=== PATIENT | male | born 1955 | race Caucasian/White ===

== ENCOUNTER 2016-10-28 00:55 | Emergency (ER) | payer MEDICAID, OTHER ==
[~2016-10-28] VITALS: Ht 170.2 cm; Wt 79.4 kg
[2016-10-28 01:06] VITALS: BP 120/95
--- NOTE | 2016-10-28 01:19 | NUR ---
TO ER BED 7
--- NOTE | 2016-10-28 01:19 | NUR ---
PATIENT PRESENTS TO ED WITH ABSCESS TO THE LEFT BACK OF ARMPIT X 2 WEEKS 8/10 PAIN. PT DENIES N/V/D; SKIN IS PINK/WARM/DRY; AAOX4 WITH EVEN AND STEADY GAIT; LUNGS CLEAR BL; HR EVEN AND REGULAR; PT DENIES ANY FEVER, CP, SOB, OR COUGH AT THIS TIME; PATIENT STATES PAIN OF 8/10 AT THIS TIME; VSS; PATIENT POSITIONED FOR COMFORT; HOB ELEVATED; BEDRAILS UP X2; BED DOWN. ER MD MADE AWARE OF PT STATUS.
[2016-10-28] MEDS ORDERED: LIDOCAINE 1% 500 MG/50 ML VIAL INJ ONE (01:20)
--- NOTE | 2016-10-28 01:50 | NUR ---
I&D Procedure done by Dr TEE PONCE amt of bleeding noted. Wound packed with . DSD applied. Pt TOLERATED THE procedure WELL. Wound care discussed w/ patient.
[2016-10-28 02:20] VITALS: BP 118/78
--- NOTE | 2016-10-28 02:20 | NUR ---
Patient discharged with v/s stable. Written and verbal after care instructions given and explained. Patient alert, oriented and verbalized understanding of instructions. Ambulatory with steady gait. All questions addressed prior to discharge. ID band removed. Patient advised to follow up with PMD. Rx of MOTRIN, NORCO, BACTRIM, KEFLEX given. Patient educated on indication of medication including possible reaction and side effects. Opportunity to ask questions provided and answered.
== END 2016-10-28 02:20 | disposition home or self-care (01) ==
LOC: MED 00:55
DX: L02.414 Cutaneous abscess of left upper limb (principal); Z98.890 Other specified postprocedural states
CPT/HCPCS: 10060; 99283; J2001

== ENCOUNTER 2016-12-21 01:08 | Emergency (ER) | payer MEDICAID, OTHER ==
[~2016-12-21] VITALS: Ht 170.2 cm; Wt 86.2 kg
[2016-12-21 01:11] VITALS: BP 147/90
--- NOTE | 2016-12-21 02:45 | NUR ---
PATIENT TO ER BED 6.
--- NOTE | 2016-12-21 02:57 | NUR ---
PT IS 61/M BIB SELF TO ED WITH C/O REDNESS, SWELLING AND PAIN ON HIS LEFT FOREARM AND 5TH TOE X 10 DAYS. DENIES N/V/D; SKIN IS PINK/WARM/DRY; AAOX4 WITH EVEN AND STEADY GAIT; LUNGS CLEAR BL; HR EVEN AND REGULAR; PT DENIES ANY FEVER, CP, SOB, OR COUGH AT THIS TIME; PATIENT STATES PAIN OF 8/10 AT THIS TIME; VSS; PATIENT POSITIONED FOR COMFORT; HOB ELEVATED; BEDRAILS UP X2; BED DOWN. ER MD MADE AWARE OF PT STATUS.
--- NOTE | 2016-12-21 03:00 | NUR ---
PATIENT BEING EVALUATED BY DR. VANN.
[2016-12-21] MEDS ORDERED: ceFAZolin 1,000 MG VIAL IM ONE (03:15)
[2016-12-21] MEDS ORDERED: WATER STERILE 10 ML MC ONE (03:39)
[2016-12-21 03:55] VITALS: BP 139/81
== END 2016-12-21 03:55 | disposition home or self-care (01) ==
LOC: MED 01:21
DX: L02.414 Cutaneous abscess of left upper limb (principal)
CPT/HCPCS: 10060; 96372; 99283; J0690

== ENCOUNTER 2017-02-11 21:34 | Inpatient (IN) | payer MEDICAID, OTHER ==
[~2017-02-11] VITALS: Ht 170.2 cm; Wt 72.6 kg
[2017-02-11 21:35] VITALS: BP 155/100
--- NOTE | 2017-02-11 21:52 | NUR ---
TO ER BED 5
--- NOTE | 2017-02-11 22:07 | NUR ---
61 YO M W/C/O CELLULITIS TO R UPPER ABD AND BILATERAL ARMS, FEVER AND CHILLS X 2 WKS. PT STATES THAT DOESNT KNOW WHAT CAUSED THE CELLULITIS. ER MD AT BEDSIDE, MIKAL.
[2017-02-11] MEDS ORDERED: NACL 0.9% 1,000 ML IV ONE (22:16)
[2017-02-11] MEDS ORDERED: KETOROLAC 30 MG/ML VIAL IVP ONE (22:20)
[2017-02-11] MEDS ORDERED: CLINDAMYCIN 600 MG in DEXTROSE 5% 50 ML IV ONE (22:20)
[2017-02-11] MEDS ORDERED: PIPERACILLIN/TAZOBACTAM 3.375 GM in DEXTROSE 5% 50 ML IV ONE (22:20)
--- NOTE | 2017-02-11 22:25 | NUR ---
CHAGE UMANG LEVEL TO 3 PT. NEEDS 3 MORE RESOURCES
[2017-02-11] MEDS ORDERED: PIPERACILLIN/TAZOBACTAM 3.375 GM VIAL IV ONE ×2 (22:38→23:44)
[2017-02-11] MEDS ORDERED: CLINDAMYCIN 600 MG/4 ML VIAL ONE (22:38)
[2017-02-11 22:45] LABS: BASOPHILS # (AUTO) 0.1 K/uL (0.00-0.22); EOSINOPHILS # (AUTO) 0.1 K/uL (0-0.4); EOSINOPHILS % (AUTO) 1.2 % (0.0-4.0); HEMATOCRIT 34.1 % (36-52); HEMOGLOBIN 10.9 g/dL (12.0-18.0); LYMPHOCYTES # (AUTO) 1.1 K/uL (2.0-11.5); LYMPHOCYTES % (AUTO) 13.5 % (20.5-51.1); MEAN CORPUSCULAR HEMOGLOBIN 25 pg (27-31); MEAN CORPUSCULAR HGB CONC 32 g/dL (33-37); MEAN CORPUSCULAR VOLUME 79 fL (80-94); MONOCYTES # (AUTO) 0.6 K/uL (0.8-1.0); MONOCYTES % (AUTO) 6.9 % (1.7-9.3); NEUTROPHILS # (AUTO) 6.5 K/uL (1.8-7.7); NEUTROPHILS % (AUTO) 77.4 % (42.2-75.2); PLATELET COUNT (AUTO) 345 K/uL (140-450); RED BLOOD CELL COUNT(AUTO) 4.33 MIL/uL (4.20-6.10); WHITE BLOOD COUNT (AUTO) 8.4 K/uL (4.8-10.8)
--- NOTE | 2017-02-11 22:45 | NUR ---
PT RESTING IN BED, VSS. NO SS OF DISTRESS NOTED, RECEIVING IV FLUIDS AND ANTIBIOTICS.
[2017-02-11] MEDS ORDERED: NACL 0.9% 1,000 ML IV SCH (22:50)
[2017-02-11] MEDS ORDERED: DOCUSATE SODIUM 100 MG GELCAP PO PRN (22:50)
[2017-02-11] MEDS ORDERED: ONDANSETRON 4 MG/2 ML VIAL IM/IVP PRN (22:50)
[2017-02-11] MEDS ORDERED: HYDROcodone/APAP 7.5/325 MG 1 TAB PO PRN (22:50)
[2017-02-11] MEDS ORDERED: ACETAMINOPHEN 325 MG TAB PO PRN (22:50)
[2017-02-11] MEDS ORDERED: MORPHINE SULFATE 2 MG/ML SYR IVP PRN (22:50)
[2017-02-11 22:58] LABS: RED CELL DISTRIBUTION WIDTH 20.5 % (11.6-13.7)
--- NOTE | 2017-02-11 23:00 | NUR ---
Patient will be admitted to care of dr lopez. Admited to telemetry. Will go to room 118. Belongings list completed. Report to he is JENIFER smith.
[2017-02-11 23:03] LABS: INR 1.1 (0.8-1.2); PROTHROMBIN TIME 11.1 secs (10.8-13.4)
[2017-02-11 23:07] LABS: LACTIC ACID 1.6 mmol/L (0.4-2.0)
--- NOTE | 2017-02-11 23:10 | NUR ---
PT ARRIVED TO THE UNIT VIA GURNEY. INITIAL ASSESSMENT COMPLETED. PT AAOX4. PT STATES THAT HE IS VERY TIRED AND WANTS TO GO TO SLEEP. PT HAS ABDOMINAL ABSCESS ON RIGHT SIDE OF ABDOMEN. PT REFUSES TO TAKE HIS SHORTS OFF SO THAT WE CAN ASSESS HIS SKIN. HE ALSO WANTED TO PUT THE HOSPITAL SOCKS BY HIMSELF. HE DID NOT WANT ME TO HELP HIM. I TOLD HIM I NEEDED TO ASSESS THE REST OF HIS SKIN, BUT HE REFUSES. HE STATED THAT HIS SKIN IS INTACT. PT HAS IV ON RIGHT FOREARM G 20 INFUSING FLUIDS WELL. VS STABLE, WILL CONTINUE TO MONITOR PT.
--- NOTE | 2017-02-11 23:12 | NUR ---
PT TAKEN TO TELEMETRY FLOOR VIA GURADELA. VSS UPON TRASFER. ACCOMPANIED BY RN, AND EMT.
--- NOTE | 2017-02-11 23:12 | NUR ---
William mari in ED - 02/12/17 at 0026 by KOMAL FLOOR NURSE NOTIFIED TO START ZOSIN IV ANTIBIOTICS DT UNABLE TO START IT ON ER FLOOR. MED SEND WITH PT.
[2017-02-11 23:16] LABS: ALBUMIN 3.5 g/dL (3.4-5.0); ANION GAP 10.8 (8-16); CALCIUM 8.2 mg/dL (8.5-10.1); CARBON DIOXIDE 28.9 mmol/L (21-32); CREATININE 0.9 mg/dL (0.7-1.3); POTASSIUM 3.7 mmol/L (3.5-5.1); TOTAL BILIRUBIN 0.6 mg/dL (0.0-1.0); TOTAL PROTEIN, SERUM 7.8 g/dL (6.4-8.2)
--- NOTE | 2017-02-11 23:40 | NUR ---
THERE IS AN ORDER FOR SCDS; HOWEVER, PT REFUSES TO USE THEM. I EXPLAINED TO PT THE IMPORTANCE OF WEARING THEM BUT HE REFUSES.
[2017-02-11 23:48] LABS: CHOL/HDL RATIO 1.9 (1-4.5); FREE T4 (FREE THYROXINE) 1.06 ng/dL (0.76-1.46); THYROID STIMULATING HORMONE 2.5 uIU/mL (0.34-3.74)
[2017-02-11 23:54] LABS: APPEARANCE,URINE SL CLOUDY (CLEAR); BILIRUBIN,URINE NEGATIVE (NEGATIVE); BLOOD, URINE NEGATIVE (NEGATIVE); COLOR,URINE YELLOW (YELLOW); LEUKOCYTE ESTERASE ,URINE NEGATIVE (NEGATIVE); NITRITE, URINE NEGATIVE (NEGATIVE); PH,URINE 5.5 (5.0-9.0); PROTEIN,URINE TRACE (NEGATIVE); UGLUCOSE NEGATIVE (NEGATIVE); UROBILINOGEN,URINE 0.2 EU/dL (0.2 - 1)
[2017-02-11 23:55] LABS: AMPHETAMINE, URINE POS. ng/ml (NEG <=1000); BARBITURATE, URINE NEG. ng/ml (NEG <=200); BENZODIAZEPINE, URINE NEG. ng/mL (NEG <=200); CANNABINOID, URINE NEG. ng/mL (NEG <=50); COCAINE, URINE NEG. ng/mL (NEG <=300); OPIATE, URINE POS. ng/mL (NEG <=2000); PHENCYCLIDINE SCREEN,URINE NEG. ng/mL (NEG <=25)
--- NOTE | 2017-02-11 23:55 | NUR ---
ZOSYN NOT GIVEN; PT RECEIVED IT WHILE HE WAS IN ER.
[2017-02-12] VITALS: BP 137/70
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
[2017-02-12 00:19] LABS: BACTERIA,URINE None Seen /HPF (None Seen); HYALINE CASTS, URINE 0-3 /LPF (None Seen); MUCUS,URINE 4+ /LPF (None Seen); RBC,URINE 0-5 (RARE) /HPF (0-5); SQUAMOUS EPITHELIAL CELL,UR 0-3 (FEW) /LPF (0-3 (FEW)); WBC,URINE 0-5 (RARE) /HPF (0-5)
--- NOTE | 2017-02-12 01:15 | NUR ---
PT SLEEPING AT THIS TIME, WILL CONTINUE TO MONITOR PT.
[2017-02-12] MEDS ORDERED: MECLIZINE 25 MG TAB PO PRN ×2 (03:05)
--- NOTE | 2017-02-12 03:25 | NUR ---
PT TAKEN TO GET A CT OF THE HEAD.
--- NOTE | 2017-02-12 03:52 | NUR ---
PT BACK FROM CT.
--- NOTE | 2017-02-12 04:00 | NUR ---
PT REQUESTING SOMETHING TO EAT, EXPLAINED TO PT THAT HE COULD NOT HAVE ANYTHING TO EAT OR DRINK BECAUSE HE MAY HAVE SURGERY TODAY. PT GOT ANGRY. WILL CALL
--- NOTE | 2017-02-12 04:10 | NUR ---
DR. NUNEZ AT BEDSIDE EXPLAINING TO PT WHY HE CAN NOT EAT OR DRINK AT THIS TIME. EXPLAINED TO PT THAT IT IS POSSIBLE HE MAY HAVE SURGERY TODAY. PT GOT ANGRY AND DISRESPECTFUL TO STAFF; HE STATED HE WANTED TO GO HOME. DR. NUNEZ ORDERED TO PRINT OUT AMA FORM; BUT PT REFUSED TO SIGN. SECURITY AND DR. NUNEZ AT BEDSIDE. HEART MONITOR REMOVED, IV REMOVED WITH TIP INTACT, ID BANDS REMOVED. ALL BELONGINGS WITH PT. SECURITY WALKED OUTSIDE ACCOMPANIED BY SECURITY SANTANA. SECURITY SANTANA STATED THAT PT TOOK THE BICYCLE PT CAME WITH.
[2017-02-12] MEDS ORDERED: CLINDAMYCIN 600 MG in DEXTROSE 5% 50 ML IV SCH (05:00)
[2017-02-12] MEDS ORDERED: PIPER/TAZO 3.375GM/D5W PREMIX 50 ML IV SCH (06:00)
[2017-02-12] MEDS ORDERED: CALCIUM ACETATE 667 MG TAB PO SCH (08:00)
--- NOTE | 2017-02-12 08:36 | NUR ---
FAXED INITIAL REVIEW TO [facility] [phone] PHONE [place] [phone] CALLED NABOR AT [facility]. SHE SAID REVIEWS GO TO [facility].
[2017-02-12] MEDS ORDERED: THIAMINE 100 MG TAB PO SCH (09:00)
[2017-02-12] MEDS ORDERED: FOLIC ACID 1 MG TAB PO SCH (09:00)
[2017-02-12] MEDS ORDERED: FERRIC GLUCONATE 125 MG in NACL 0.9% 100 ML IV SCH (09:00)
[2017-02-12] MEDS ORDERED: LACTOBACILLUS RHAMNOSUS GG 1 EACH CAP PO SCH (09:00)
[2017-02-13 08:20] LABS: HEMOGLOBIN A1C 5.6 % (4.8-5.6); T4 (THYROXINE) 7.5 ug/dL (4.5-12.0)
== END 2017-02-12 04:20 | disposition left against medical advice (07) | DRG 812 ==
LOC: MED 21:34 → MTU 22:59
PROVIDERS: ADMIT Student in an Organized Health Care Education/Training Program; ATTEND Student in an Organized Health Care Education/Training Program
DX: T43.621A Poisoning by amphetamines, accidental (unintentional), initial encounter (principal); N17.0 Acute kidney failure with tubular necrosis; G92 Toxic encephalopathy; E83.39 Other disorders of phosphorus metabolism; F11.129 Opioid abuse with intoxication, unspecified; D50.9 Iron deficiency anemia, unspecified; L02.211 Cutaneous abscess of abdominal wall; T50.901A Poisoning by unspecified drugs, medicaments and biological substances, accidental (unintentional), initial encounter; R10.31 Right lower quadrant pain; L03.113 Cellulitis of right upper limb; F15.129 Other stimulant abuse with intoxication, unspecified; Z60.2 Problems related to living alone; L03.114 Cellulitis of left upper limb; Z53.21 Procedure and treatment not carried out due to patient leaving prior to being seen by health care provider; Z59.0 Homelessness
CPT/HCPCS: 36415; 70450; 71010; 80053; 80305; 81001; 82150; 83036; 83605; 83690; 83735; 83880; 84100; 84436; 84439; 84443; 84479; 84484; 85025; 85610; 85730; 87040; 87081; 87086; 96365; 96368; 96375; 99285; J1885; J2543; J2916; J3490; J7030; J7060; Q0092

== ENCOUNTER 2017-06-20 00:35 | Inpatient (IN) | payer MEDICAID, OTHER ==
[~2017-06-20] VITALS: Ht 170.2 cm; Wt 79.4 kg
[2017-06-20 00:42] VITALS: BP 144/84
--- NOTE | 2017-06-20 00:47 | NUR ---
PT TAKEN TO BED 6
--- NOTE | 2017-06-20 00:48 | NUR ---
61/M CAME IN W C/0 05/06 PAIN TO RT ARM X 2 WEEKS. ABSCESS NOTED ON RT LATERAL ARM, SITE RED AND WARM TO TOUCH, +PMSC. PT REPORTED HE INJECTED DRUG INTO ARM AND ABSCESS FORMED AFTERWARDS. DENIES FEVERS, N/V/D. PMH: HEP C, HTN DENIES RX/OTC.
--- NOTE | 2017-06-20 00:55 | NUR ---
Dr. Manning evaluating patient at bedside.
[2017-06-20] MEDS ORDERED: HYDROmorphone PFS 2 MG/ML SYR IVP ONE ×3 (01:00→02:55)
[2017-06-20] MEDS ORDERED: NACL 0.9% 1,000 ML IV ONE (01:00)
[2017-06-20] MEDS ORDERED: LIDOCAINE 1% ***ER ONLY *** 50 ML ONE (01:03)
[2017-06-20 01:13] LABS: HEMATOCRIT 38.2 % (36-52); MEAN CORPUSCULAR HEMOGLOBIN 27 pg (27-31); MEAN CORPUSCULAR HGB CONC 32 g/dL (33-37); MEAN CORPUSCULAR VOLUME 87 fL (80-94); PLATELET COUNT (AUTO) 318 K/uL (140-450); RED BLOOD CELL COUNT(AUTO) 4.39 MIL/uL (4.20-6.10); RED CELL DISTRIBUTION WIDTH 15.4 % (11.6-13.7)
--- NOTE | 2017-06-20 01:26 | NUR ---
IVP/IVF MEDS GIVEN-NADR AT THIS TIME
--- NOTE | 2017-06-20 01:31 | NUR ---
BLOOD SENT TO LAB
[2017-06-20 01:38] LABS: ANION GAP 13.4 (8-16); CARBON DIOXIDE 25.2 mmol/L (21-32); CREATININE 0.9 mg/dL (0.7-1.3); POTASSIUM 3.6 mmol/L (3.5-5.1)
[2017-06-20 01:43] LABS: ALBUMIN 3.1 g/dL (3.4-5.0); TOTAL BILIRUBIN 0.5 mg/dL (0.0-1.0)
[2017-06-20 01:48] LABS: WHITE BLOOD COUNT (AUTO) 18.4 K/uL (4.8-10.8)
[2017-06-20 01:49] LABS: LYMPHOCYTES % (MANUAL) 10 % (20-46); MONOCYTES % (MANUAL) 8 % (5-12)
--- NOTE | 2017-06-20 01:52 | NUR ---
X-Ray at bedside.
[2017-06-20] MEDS ORDERED: PIPERACILLIN/TAZOBACTAM 3.375 GM in DEXTROSE 5% 50 ML IV ONE (02:20)
[2017-06-20] MEDS ORDERED: VANCOMYCIN 1,000 MG in DEXTROSE 5% 250 ML IV ONE (02:20)
--- NOTE | 2017-06-20 02:35 | NUR ---
I&D Procedure done by Dr GR. 50ML of bleeding noted. Wound packed with IODOFORM GAUZE. DSD applied. Pt procedure. Wound care discussed w/ patient.
[2017-06-20] MEDS ORDERED: PIPERACILLIN/TAZOBACTAM 3.375 GM VIAL IV ONE ×2 (02:36→02:49)
[2017-06-20] MEDS ORDERED: VANCOMYCIN 1,000 MG VIAL ONE (02:36)
--- NOTE | 2017-06-20 02:58 | NUR ---
Ultrasound at bedside.
[2017-06-20] MEDS ORDERED: LIDOCAINE 1% ***ER ONLY *** 10 MG/ML VIAL INJ ONE (03:40)
[2017-06-20] MEDS ORDERED: NACL 0.9% 1,000 ML IV SCH (03:42)
[2017-06-20] MEDS ORDERED: ACETAMINOPHEN 325 MG TAB PO PRN (03:45)
[2017-06-20] MEDS ORDERED: HYDROcodone/APAP 7.5/325 MG 1 TAB PO PRN (03:45)
[2017-06-20] MEDS ORDERED: ONDANSETRON 4 MG/2 ML VIAL IVP PRN (03:45)
[2017-06-20] MEDS ORDERED: VANCOMYCIN PER PHARMACY MC PRN (03:55)
--- NOTE | 2017-06-20 04:11 | NUR ---
Patient will be admitted to care of DR PEDRO. Admited to TELE. Will go to room 120B. Belongings list completed. Report to ROXI BURGESS. PT TRANSPORTED VIA GURNEY WITH [employer]ER. PT STABLE DURING TRANSFER, IV INFUSING, FRIT BURNER AWARE.
--- NOTE | 2017-06-20 04:15 | NUR ---
ADMITTED THIS 61 YEAR OLD MALE FROM ER PER ALISIA WITH CC OF RT ARM ABSCESS, AMBULATED TO BED WITH STEADY GAIT, ASSESSMENT DONE, RT ARM PAIN 8/10 AT THIS TIME, HX OBTAINED PARTIALLY, PT PREFER TO BE LEFT ALONE THIS TIME AND WANTS TO GO TO SLEEP, ORIENTED TO ROOM AND CALL LIGHT, IV VANCOMYCIN INFUSING WELL STARTED FROM ER, SAFETY MEASURES IN PLACE, CALL LIGHT WITHIN REACH.
[2017-06-20 04:16] LABS: CHOL/HDL RATIO 2.1 (1-4.5); FREE T4 (FREE THYROXINE) 1.1 ng/dL (0.76-1.46); MAGNESIUM 1.5 mg/dL (1.8-2.4); PHOSPHORUS 3.9 mg/dL (2.5-4.9); THYROID STIMULATING HORMONE 1.82 uIU/mL (0.34-3.74)
[2017-06-20 04:30] VITALS: BP 166/95
[2017-06-20] MEDS ORDERED: PIPERACILLIN/TAZOBACTAM 3.375 GM in DEXTROSE 5% 50 ML IV SCH (05:00)
--- NOTE | 2017-06-20 05:05 | NUR ---
DR CORMIER CAME IN AND TALK TO PT, PT UNCOOPERATIVE AT THIS TIME AND NOT ANSWERING QUESTIONS, DR CORMIER MARKED THE RT ARM, WOUND CULTURE SENT TO LAB, DRESSING CHANGE DONE, ALL NEEDS ATTENDED.
[2017-06-20 05:10] VITALS: BP 139/69
[2017-06-20 05:13] LABS: APPEARANCE,URINE CLEAR (CLEAR); BILIRUBIN,URINE NEGATIVE (NEGATIVE); BLOOD, URINE NEGATIVE (NEGATIVE); COLOR,URINE YELLOW (YELLOW); LEUKOCYTE ESTERASE ,URINE NEGATIVE (NEGATIVE); NITRITE, URINE NEGATIVE (NEGATIVE); PH,URINE 5.5 (5.0-9.0); UGLUCOSE NEGATIVE (NEGATIVE)
[2017-06-20 05:21] LABS: BARBITURATE, URINE NEG. ng/ml (NEG <=200); BENZODIAZEPINE, URINE NEG. ng/mL (NEG <=200); CANNABINOID, URINE NEG. ng/mL (NEG <=50); COCAINE, URINE NEG. ng/mL (NEG <=300); OPIATE, URINE POS. ng/mL (NEG <=2000); PHENCYCLIDINE SCREEN,URINE NEG. ng/mL (NEG <=25)
--- NOTE | 2017-06-20 06:10 | NUR ---
PT AMBULATED TO BR AND VOIDED FREELY, SANDWICH PROVIDED AND CONSUMED 100%, RAY SPOUT WORKER UNABLE TO DRAW AM LABS, WILL TRY AGAIN LATER, RESUMED IVF OF NS AT 126ML/H, MONITORED CLOSELY.
--- NOTE | 2017-06-20 07:18 | NUR ---
PT SLEEPING, NO DISTRESS NOTED, REPORT GIVEN TO RN JOHN FOR CONTINUITY OF CARE.
--- NOTE | 2017-06-20 07:30 | NUR ---
RECEIVED PT ON BED AAOX4. NO SOB NOTED. NO C/O PAIN AT THIS TIME. IV TO LT AC PATENT AND INTACT. RT ARM ABSCESS DRESSING DRY AND INTACT. CHEST CLEAR. ABDOMEN SOFT, BOWEL SOUNDS PRESENT. NO EDEMA NOTED. INSTRUCTED PT TO CALL FOR ASSISTANCE, CALL LIGHT WITHIN REACH. PT VERBALIZED UNDERSTANDING.
--- NOTE | 2017-06-20 07:56 | NUR ---
[facility] REFERRAL RECEIVED ON 06/20/17 FOR UNHEALED WOUND. PT WITH WORSENING ABSCESS TO THE RIGHT ARM BUT LEI SCORE OF 20. REFERRAL REASON DOES NOT MEET HIGH RISK CRITERIA PER HOSPITAL POLICY. PT WILL BE SEEN AND ASSESSED ACCORDING TO THE NUTRITION CARE POLICY. RAMON HOANG MBA, RD
[2017-06-20 08:00] VITALS: BP 120/65
[2017-06-20] MEDS ORDERED: DOCUSATE SODIUM 100 MG GELCAP PO SCH (09:00)
[2017-06-20] MEDS ORDERED: LACTOBACILLUS RHAMNOSUS GG 1 EACH CAP PO SCH (09:00)
--- NOTE | 2017-06-20 09:42 | NUR ---
PATIENT HAS BEEN SCREENED AND CATEGORIZED MODERATE NUTRITION RISK. PATIENT WILL BE SEEN WITHIN 3-5 DAYS OF ADMISSION. 06/23/17 - 06/25/17 RAMON HOANG MBA, RD
--- NOTE | 2017-06-20 12:00 | NUR ---
PT WOKE UP AND PULLED OUT IV, STATED WE WANTS TO SIGN THE AMA FORM.
--- NOTE | 2017-06-20 12:25 | NUR ---
PT SIGNED AGAINST MEDICAL ADVICE FORM. RISKS AND CONSEQUENCES DISCUSSED BY DR. MART EARLIER TO PT, VERBALIZED UNDERSTANDING.
--- NOTE | 2017-06-20 12:30 | NUR ---
PRESCRIPTIONS GIVEN TO PT, VERBALIZED UNDERSTANDING.
--- NOTE | 2017-06-20 12:35 | NUR ---
PT IS D/C FROM [facility] FLOOR IN STABLE CONDITION. AMBULATORY. NO COMPLAINTS MADE. RT ARM DRESSING DRY AND INTACT. PROVIDED WITH GAUZE AND TAPE FOR CHANGE OF DRESSING. PT STATED HE KNOWS HOW TO CHANGE THE DRESSING AND REFUSED TEACHINGS. PT ALSO STATED HE IS PLANNING TO GO TO REHAB FOR HIS DRUG ABUSE.
[2017-06-20] MEDS ORDERED: PIPER/TAZO 3.375GM/D5W PREMIX 50 ML IV SCH (13:00)
--- NOTE | 2017-06-20 13:15 | NUR ---
PT LEFT PRESCRIPTIONS AT THE BEDSIDE. CALLED PT'S PHONE NUMBER [phone], NO ANSWER. VOICEMAIL MESSAGE LEFT.
[2017-06-20] MEDS ORDERED: VANCOMYCIN 1GM/DEXT 5% PREMIX 200 ML IV SCH (15:00)
--- NOTE | 2017-06-25 14:37 | NUR ---
FAXED DISCHARGE SUMMARY TO [facility] [phone] PHONE [phone].
== END 2017-06-20 12:35 | disposition home or self-care (01) | DRG 720 ==
LOC: MED 00:35 → MTU 03:48
PROVIDERS: ADMIT Family Medicine; ATTEND Family Medicine
PROC: 0X9B0ZZ Drainage of Right Elbow Region, Open Approach (ICD-10-PCS; principal; 2017-06-20)
DX: A41.9 Sepsis, unspecified organism (principal); G92 Toxic encephalopathy; E44.0 Moderate protein-calorie malnutrition; E83.42 Hypomagnesemia; L02.413 Cutaneous abscess of right upper limb; F11.11 Opioid abuse, in remission; L03.113 Cellulitis of right upper limb; E11.9 Type 2 diabetes mellitus without complications; Z53.21 Procedure and treatment not carried out due to patient leaving prior to being seen by health care provider; F19.10 Other psychoactive substance abuse, uncomplicated; B19.20 Unspecified viral hepatitis C without hepatic coma; Z86.19 Personal history of other infectious and parasitic diseases; Z59.0 Homelessness; Z68.27 Body mass index [BMI] 27.0-27.9, adult
CPT/HCPCS: 36415; 71010; 73080; 80053; 80305; 81003; 82150; 83036; 83605; 83690; 83735; 83880; 84100; 84439; 84443; 84484; 85025; 85610; 85730; 87040; 87070; 87075; 87081; 87086; 87205; 93005; 93971; 96361; 96365; 96367; 96375; 96376; 99285; J1170; J2001; J2543; J3370; J7030; J7060; Q0092

== ENCOUNTER 2017-07-06 22:45 | Emergency (ER) | payer MEDICAID, OTHER ==
[~2017-07-06] VITALS: Ht 170.2 cm; Wt 69.4 kg
[2017-07-06 23:04] VITALS: BP 121/96
--- NOTE | 2017-07-06 23:53 | NUR ---
PT TAKEN TO BED 6.
--- NOTE | 2017-07-06 23:55 | NUR ---
PATIENT IS A 61 Y/O MALE WHO PRESENTS TO THE ED C/O LEFT SIDE FLANK PAIN. PT STATES, "MY SIDES HAVE BEEN HURTING. I THINK IT'S MY PANCREAS." PT REPORTS 10/10 ACHING PAIN THAT DOES NOT RADIATE. PT DENIES CP, SOB, N/V/D. PT AAOX4, RR EVEN/UNLABORED. PT REPOSITIONED FOR COMFORT, BED IN LOWEST POSITION. ER MD DR. RIVERA NOTIFIED. WILL CONTINUE TO MONITOR.
[2017-07-07 00:55] VITALS: BP 119/87
--- NOTE | 2017-07-07 00:55 | NUR ---
Patient discharged with v/s stable. Written and verbal after care instructions given and explained. Patient alert, oriented and verbalized understanding of instructions. Ambulatory with steady gait. All questions addressed prior to discharge. ID band removed. Patient advised to follow up with PMD. Rx of CLINDAMYCIN 300MG given. Patient educated on indication of medication including possible reaction and side effects. Opportunity to ask questions provided and answered.
== END 2017-07-07 00:55 | disposition home or self-care (01) ==
LOC: MED 22:45
DX: L02.414 Cutaneous abscess of left upper limb (principal); L02.413 Cutaneous abscess of right upper limb; F11.10 Opioid abuse, uncomplicated; R03.0 Elevated blood-pressure reading, without diagnosis of hypertension
CPT/HCPCS: 99283

== ENCOUNTER 2018-12-30 05:38 | Emergency (ER) | payer MEDICAID, OTHER ==
[~2018-12-30] VITALS: Ht 170.2 cm; Wt 72.6 kg
[2018-12-30 05:50] VITALS: BP 138/61
[2018-12-30 05:56] VITALS: BP 138/61
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
[2018-12-30] MEDS ORDERED: KETOROLAC 60 MG/2 ML VIAL IM ONE (06:20)
== END 2018-12-30 07:01 | disposition home or self-care (01) ==
LOC: MED 05:38
DX: M54.2 Cervicalgia (principal); M79.10 Myalgia, unspecified site; F17.200 Nicotine dependence, unspecified, uncomplicated
CPT/HCPCS: 96372; 99283; J1885